=== PATIENT | female | born 1985 | race Caucasian/White ===

== ENCOUNTER 2019-06-05 20:09 | Emergency (ER) | payer MEDICAID ==
[~2019-06-05] VITALS: Ht 160 cm; Wt 84.8 kg
[2019-06-05 20:22] VITALS: BP 123/72
--- NOTE | 2019-06-05 20:29 | NUR ---
PT TAKEN TO BED 6.
[2019-06-05 20:45] VITALS: BP 121/68
--- NOTE | 2019-06-05 20:45 | NUR ---
C/O THROAT PAIN X2 WEEKS, STATES SHE WAS ON ANTIBIOTICS AND IT DIDN'T HELP, C/O SOB SINCE LAST WEEK. REPORTS DIARRHEA AND NAUSEA, DENIES VOMITING; PT ALSO HAS BURNING SENSATION OF URINATION. PATIENT STATES PAIN OF 10/10 AT THIS TIME; VSS; PATIENT POSITIONED FOR COMFORT; HOB ELEVATED; BEDRAILS UP X1; BED DOWN. ER MD MADE AWARE OF PT STATUS.
[2019-06-05] MEDS ORDERED: FLUCONAZOLE 100 MG TAB PO ONE (20:50)
[2019-06-05] MEDS ORDERED: methylPREDNISolone SS 125 MG/2 ML VIAL IM ONE (20:50)
[2019-06-05] MEDS ORDERED: CLINDAMYCIN 150 MG CAP PO ONE (20:50)
[2019-06-05] MEDS ORDERED: ALBUTEROL SULFATE/IPRATROPIU 3 ML SOL IH ONE (20:50)
[2019-06-05] MEDS ORDERED: CLINDAMYCIN 300 MG in DEXTROSE 5% 50 ML IV ONE (20:55)
[2019-06-05] MEDS ORDERED: methylPREDNISolone SS 125 MG/2 ML VIAL IVP ONE (20:55)
--- NOTE | 2019-06-05 21:16 | NUR ---
REPORT GIVEN TO DONNIE CHAVEZ. TRANSFERED CARE AT THIS TIME.
--- NOTE | 2019-06-05 21:17 | NUR ---
REPORT RECEIVED FROM DONNIE POWELL. ASSUMED CARE AT THIS TIME
[2019-06-05] MEDS ORDERED: CLINDAMYCIN 600 MG/4 ML VIAL ONE (21:19)
--- NOTE | 2019-06-05 21:50 | NUR ---
PT STILL C/O THROAT PAIN, 07/08. DR. CIFUENTES NOTIFIED.
[2019-06-05] MEDS ORDERED: KETOROLAC 30 MG/ML VIAL IVP ONE (21:55)
--- NOTE | 2019-06-05 22:03 | NUR ---
Patient discharged with v/s stable. Written and verbal after care instructions given and explained. Patient alert, oriented and verbalized understanding of instructions. Ambulatory with steady gait. All questions addressed prior to discharge. ID band removed. Patient advised to follow up with PMD. Rx of motrin, clindamycin, prednisone, and albuterol given. Patient educated on indication of medication including possible reaction and side effects. Opportunity to ask questions provided and answered.
[2019-06-05] MEDS ORDERED: KETOROLAC 30 MG/ML VIAL ONE (22:06)
== END 2019-06-05 22:03 | disposition home or self-care (01) ==
LOC: MED 20:09
DX: J02.0 Streptococcal pharyngitis (principal); J45.909 Unspecified asthma, uncomplicated; B37.3 Candidiasis of vulva and vagina; Z88.0 Allergy status to penicillin
CPT/HCPCS: 81002; 81025; 94640; 94760; 96365; 96375; 99283; J1885; J2930; J3490; J7620